=== PATIENT | male | born 1960 | race Two or more races ===

== ENCOUNTER 2024-05-24 20:38 | Emergency (ER) | payer OTHER, MEDICAID, SELFPAY ==
[2024-05-24 20:43] VITALS: PULSE 70; RESP 18; BMI 33.3
[2024-05-24 21:26] VITALS: BP 147/81; PULSE 74; RESP 18; TEMP 37.1; O2SAT 96
--- NOTE | 2024-05-24 21:33 | EDNOTE_ITS ---
ED Male Genitalurinary RME/HPI General Chief complaint: Urogenital-Male Stated complaint: TROUBLE VOIDING X 3HOURS Time Seen by Provider: 05/24/24 21:19 Source: patient Arrival date/time: 05/24/24 20:38 64-year-old male past medical history of BPH and prediabetes presents emergency department complaining of painful urination and acute urinary retention for 3 hours the patient reports was able to urinate spontaneously upon arrival to the ER. Mode of arrival: wheelchair Limitations: physical limitation Related Data Allergies Allergy/AdvReac Type Severity Reaction Status Date / Time No Known Allergies Allergy Verified 11/15/23 12:19 Review of Systems Review of Systems Systems Reviewed: All systems reviewed, normal except as documented Constitutional Constitutional: Reports system reviewed and no additional complaints, except as documented, Denies body ache(s), Denies chills and Denies fever(s) Eyes Eyes: Reports system reviewed and no additional complaints, except as documented and Denies change in vision ENT Ears, Nose, Mouth, and Throat: Reports system reviewed and no additional complaints, except as documented, Denies disequilibrium, Denies dizziness, Denies sore throat and Denies vertigo Cardiovascular Cardiovascular: Reports system reviewed and no additional complaints, except as documented, Denies chest pain and Denies dyspnea Respiratory Respiratory: Reports system reviewed and no additional complaints, except as documented, Denies chest congestion, Denies cough and Denies dyspnea Gastrointestinal Gastrointestinal: Reports system reviewed and no additional complaints, except as documented, Denies abdominal pain, Denies nausea and Denies vomiting Genitourinary Genitourinary: Reports difficulty urinating and Reports urinary urgency Musculoskeletal Musculoskeletal: Reports system reviewed and no additional complaints, except as documented, Denies abnormal gait and Denies arthralgias Integumentary/Breasts Skin/Breast: Reports system reviewed and no additional complaints, except as documented, Denies erythema, Denies rash and Denies wounds Neurologic Neurologic: Reports system reviewed and no additional complaints, except as documented, Denies abnormal gait, Denies disequilibrium, Denies dizziness and Denies vertigo Past Medical History Social History SMOKING STATUS: Never smoker ED Exam General Limitations: Present physical limitation General appearance: Present alert and in no apparent distress Head Head exam: Present atraumatic Eye Eye exam: Present normal appearance, PERRL and EOMI ENT ENT exam: Present normal exam, normal oropharynx and mucous membranes moist Neck Neck exam: Present normal inspection, full ROM and trachea midline Chest Chest inspection: Present normal inspection and symmetric chest wall rise Respiratory Respiratory exam: Present normal lung sounds bilaterally Cardiovascular Cardiovascular exam: Present regular rate, normal rhythm and normal heart sounds Abdominal Exam Abdominal exam: Present soft and normal bowel sounds Extremities Exam Extremities exam: Present normal inspection and full ROM Back Exam Back exam: Present normal inspection and full ROM Neurological Exam Neurological exam: Present alert, oriented X3 and CN II-XII intact Psychiatric Psychiatric exam: Present normal affect and normal mood Skin Skin exam: Present warm, dry, intact and normal color Course Quality Measures none Orders Category Date Time Status Urinalysis, C/S if Indicated Stat Lab 05/24/24 21:47 Completed Vital Signs Vital signs: Vital Signs Temperature 98.7 F 05/24/24 21:26 Pulse Rate 74 05/24/24 21:26 Respiratory Rate 18 05/24/24 21:26 Blood Pressure 147/81 H 05/24/24 21:26 Pulse Oximetry (%) 96 05/24/24 21:26 Oxygen Delivery Method Room Air 05/24/24 21:26 96% RA WNL. Urogenital - Male MDM Narrative MDM Narrative:: 64-year-old male past medical history of BPH and prediabetes presents emergency department complaining of painful urination and acute urinary retention for 3 hours the patient reports was able to urinate spontaneously upon arrival to the ER. Urinalysis was unremarkable for any infection. Patient was able to urinate upon arrival to the ER and reports had a pending visit to urologist in the past but reports never went. Patient stable for discharge instructed to follow-up with primary care provider and request referral to urologist. Instructed to return immediately to emergency department for any acute urinary retention or as needed. Patient data External records reviewed:: [facility] previous records Clinical information provided by:: patient Social determinants that could affect healthcare access:: none Patient has the following chronic illnesses:: see chart How is presenting disease/condition affected by chronic disease/condition?: uneffected by Evaluation data The following diagnostics were reviewed and interpreted by me:: lab results Lab and/or radiology exams considered but not ordered:: ordered Interpretation Summary: interpreted by me Medications / Prescriptions Medications or Prescriptions considered but not ordered:: n/a Medication administrations:: n/a Consultations Consultation(s) initiated? (list below): No Diagnosis Urogenital Male Differential Diagnosis: urinary tract infection, urethritis, genital herpes simplex, prostatitis and acute retention of urine Most likely diagnosis given after review of the tests above:: acute retention of urine Admission Indicated Admission indicated?: not indicated Admission Request Was there a request for admission?: No Disposition Plan Disposition Plan: Discharge Discharge Attestation Discharge Attestation: The patient and all family members were given an opportunity to ask questions and understood the discharge instructions. Discharge instructions specifically effects, indications for sooner follow up or return to the emergency department, and the expected course of current diagnosis. Patient condition: Stable Discharge Plan Plan Patient Disposition: HOME (Self Care) Disposition Comment: Stable Prescriptions/Referrals Referrals: No Primary/Family,Physician [Primary Care Provider] - In 1 week Problem List Clinical Impression: Acute retention of urine Patient/Caregiver Discharge Instructions Discharge Activity: activity as tolerated Education Materials: Benign Prostatic Hyperplasia, ED Urinary Retention, Male Additional Instructions: Drink plenty of fluids stay hydrated. Close follow-up with primary care provider in 24 to 4 hours and request referral to urologist. Return to emergency department for any urinary retention worsening symptoms or as needed. Print Language: Malawian Stand Alone Forms: Lauren Award Info., Patient Portal Info Letter PA/RATNA Supervising Physician HARESH/RATNA Supervising Physician: Dr. Monae
[2024-05-24 22:10] LABS: Collection Type, Urine Clean Catch; RBC,Urine 0 /hpf (0-3); Squamous Epithelial Cell,Urine 0 /hpf (0-5); WBC,Urine 0 /hpf (0-5)
[2024-05-24 22:18] LABS: Bacteria,Urine Rare; Bilirubin,Urine Negative (Negative); Blood,Urine Negative (Negative); Clarity,Urine Clear (Clear/Hazy); Color,Urine Yellow (Lt Yel-Yel); Culture Indicated,Urine Not Indicated; Glucose, Urine Negative (Negative); Ketones,Urine Negative (Negative); Leukocyte Esterase,Urine Negative (Negative); Nitrite,Urine Negative (Negative); Protein,Urine Trace (Neg - Trace); Specific Gravity,Urine 1.028 (1.001-1.035)
[2024-05-24 23:11] VITALS: BP 135/76; PULSE 86; RESP 18; TEMP 36.7; O2SAT 98
== END 2024-05-24 23:20 | disposition home or self-care (01) ==
PROVIDERS: Emergency Provider Emergency Medicine
DX: N40.1 Benign prostatic hyperplasia with lower urinary tract symptoms (principal); R33.8 Other retention of urine
CPT/HCPCS: 81001; 99283

== ENCOUNTER → 2024-06-17 | Outpatient (CLI) | payer OTHER, MEDICAID, SELFPAY ==
[2024-06-17 15:30] LABS: Collection Type, Urine Clean Catch
[2024-06-17 15:46] LABS: Basophils % (Auto) 0 % (0-2.5); Eosinophils # (Auto) 0.3 Thou/mm3 (0.0-0.5); Eosinophils % (Auto) 3 % (0-10); Hematocrit 45.6 % (41.0-53.0); Hemoglobin 15.7 g/dL (13.5-16.0); Immature Granulocytes % (Auto) 1 % (0-0); Immature Granulocytes Auto 0.05 Thou/mm3 (0.00-0.00); Lymphocytes # (Auto) 1.8 Thou/mm3 (1.0-4.8); Lymphocytes % (Auto) 17 % (10-50); Mean Corpuscular HGB Conc 34.4 g/dl (31.0-37.0); Mean Corpuscular Hemoglobin 31.8 pg (25.0-35.0); Mean Corpuscular Volume 93 fL (80-100); Monocytes % (Auto) 10 % (0-12); Neutrophils # (Auto) 7.3 Thou/mm3 (1.8-7.7); Neutrophils % (Auto) 69 % (37-80); Nucleated Red Blood Cell % 0 /100 WBC (0); Platelet Count 308 Thou/mm3 (140-440); RDW Standard Deviation 46.1 fL (35.1-43.9); Red Blood Count 4.93 Miln/mm3 (4.50-5.90); White Blood Count 10.6 Thou/mm3 (3.8-10.6)
[2024-06-17 15:56] LABS: Glucose Estimated Average 103 mg/dL (80-131); Hemoglobin A1C 5.2 % Hgb (4.8-6.0)
[2024-06-17 15:58] LABS: Prostate Specific Antigen 0.85 ng/mL (0-4.00)
[2024-06-17 16:03] LABS: Alanine Aminotransferase 17 U/L (10-49); Albumin/Globulin Ratio 1.6 (1.2-2.2); Alkaline Phosphatase 110 U/L (46-116); Anion Gap 6 (7-16); Aspartate Amino Transferase 18 U/L (0-34); BUN/Creatinine Ratio 21 Ratio (12-20); Bilirubin,Total 0.6 mg/dL (0.3-1.2); Blood Urea Nitrogen 17 mg/dL (9-23); Calcium 9.1 mg/dL (8.3-10.6); Calcium (Corrected) 9.1 mg/dL (8.5-10.1); Carbon Dioxide 27.1 mMol/L (20.0-31.0); Cardiac Risk Estimate 3.7 RATIO (4.0-6.7); Chloride 107 mMol/L (98-107); Cholesterol 149 mg/dL (132-200); Creatinine (Component) 0.8 mg/dL (0.6-1.3); Globulin 2.5 gm/dL (2.3-3.5); Glucose 105 mg/dL (74-106); HDL Cholesterol 40 mg/dL (40-60); LDL Cholesterol,Calculated 79 mg/dL (0-130); Osmolality,Calculated 280 (275-295); Potassium 4.2 mMol/L (3.4-5.1); Sodium 140 mMol/L (136-145); Thyroid Stimulating Hormone 1.45 uIU/mL (0.55-4.78); Total Protein 6.5 gm/dL (5.7-8.2); Triglycerides 150 mg/dL (30-150); eGFR > 60 See Note
[2024-06-17 16:04] LABS: Vitamin D 25 Hydroxy Total 22.8 ng/mL (7.3-40.2)
[2024-06-17 16:07] LABS: Creatinine MALB Rnd Ur 153 mg/dL (30-125); Microalbumin Creat Ratio 92 mg/gCrea (<30); Microalbumin, Random Urine 140 mg/L (0-300)
[2024-06-17 16:08] LABS: Bacteria,Urine 4+; Bilirubin,Urine Negative (Negative); Blood,Urine 2+ (Negative); Clarity,Urine Turbid (Clear/Hazy); Color,Urine Yellow (Lt Yel-Yel); Glucose, Urine Negative (Negative); Ketones,Urine Negative (Negative); Leukocyte Esterase,Urine Positive (Negative); Nitrite,Urine Negative (Negative); Protein,Urine 1+ (Neg - Trace); RBC,Urine 189 /hpf (0-3); Specific Gravity,Urine 1.027 (1.001-1.035); Squamous Epithelial Cell,Urine 3 /hpf (0-5); Urobilinogen,Urine Negative mg/dL (0.0-1.0); WBC,Urine 302 /hpf (0-5)
[2024-06-17 16:12] LABS: Culture Indicated,Urine Yes
== END | disposition home or self-care (01) ==
LOC: COPL 14:22
PROVIDERS: PCP Family Medicine; Referring Provider Family Medicine; Visit Provider Family Medicine
DX: Z00.00 Encounter for general adult medical examination without abnormal findings (principal); Z13.0 Encounter for screening for diseases of the blood and blood-forming organs and certain disorders involving the immune mechanism; Z13.29 Encounter for screening for other suspected endocrine disorder; Z13.21 Encounter for screening for nutritional disorder; Z13.220 Encounter for screening for lipoid disorders
CPT/HCPCS: 36415; 80053; 80061; 81001; 82043; 82306; 82570; 83036; 84153; 84443; 85025; 87077; 87086; 87186

== ENCOUNTER 2024-09-21 17:53 | Emergency (ER) | payer OTHER, MEDICAID, SELFPAY ==
[2024-09-21 17:54] VITALS: BMI 33.3
[2024-09-21 18:21] VITALS: BP 149/100; PULSE 69; RESP 18; TEMP 37.2; O2SAT 96
--- NOTE | 2024-09-21 18:27 | PD.EDUPEX ---
Upper Extremity Injury RME/HPI General Chief Complaint: Extremity Injury, Upper Stated Complaint: L SHOULDER INFLAMMATION S/P ARTHRITIS X1DAY Time Seen by Provider: 09/21/24 18:14 Source: patient, RN notes reviewed and old records reviewed Arrival date/time: 09/21/24 17:53 Mode of arrival: ambulatory Limitations: no limitations RME / HPI RME / HPI narrative: 64yom presents to ED for left shoulder pain since yesterday. Denies injury/trauma or fall. Patient reports hx of arthritis. Pain worsens with palpation and ROM. Ibuprofen taken yesterday with some relief, no medications or treatments today. No fever, shortness of breath, chest pain, UE weakness or numbness/tingling reported. Related Data Previous Rx's ?Medication ?Instructions ?Recorded ibuprofen 600 mg tablet 600 mg PO Q6H PRN pain #20 tabs 09/21/24 lidocaine 5 % topical patch 1 patch topical QDAY #15 ea 09/21/24 methocarbamol 500 mg tablet 1,000 mg (2 x 500 mg) PO Q8H PRN 09/21/24 pain #30 tabs Allergies Allergy/AdvReac Type Severity Reaction Status Date / Time No Known Allergies Allergy Verified 09/21/24 17:57 Review of Systems Review of Systems Systems Reviewed: All systems reviewed, normal except as documented Constitutional Constitutional: Denies chills and Denies fever(s) ENT Ears, Nose, Mouth, and Throat: Denies neck pain Cardiovascular Cardiovascular: Denies chest pain and Denies dyspnea Respiratory Respiratory: Denies dyspnea Musculoskeletal Musculoskeletal: Reports arthralgias, Denies deformity, Denies joint swelling, Reports limited range of motion, Denies neck pain, Denies numbness and Denies tingling Neurologic Neurologic: Denies localized weakness, Denies numbness and Denies tingling Past Medical History Past Medical History CARDIAC: Positive Hypercholesterolemia and Hypertension Surgical History OTHER SURGICAL HX: Inguinal hernia repair Social History SMOKING STATUS: Never smoker SUBSTANCE USE: does not use ALCOHOL: Never Past Medical History Comments PMH COMMENT: prediabetes ED Exam General Limitations: Present no limitations General appearance: Present alert and in no apparent distress Head Head exam: Present atraumatic and normocephalic Eye Eye exam: Present normal appearance, PERRL and EOMI ENT ENT exam: Present normal exam and mucous membranes moist Neck Neck exam: Present normal inspection and full ROM; Absent tenderness Chest Chest inspection: Present normal inspection and symmetric chest wall rise; Absent tenderness Respiratory Respiratory exam: Present normal lung sounds bilaterally; Absent respiratory distress Cardiovascular Cardiovascular exam: Present regular rate and normal rhythm Extremities Exam Extremities exam: Present tenderness (Left anterior shoulder, no swelling. Limited ROM 2/2 pain. Able to wiggle all fingers. Radial pulse and sensation intact.) Back Exam Back exam: Present normal inspection and full ROM; Absent tenderness Neurological Exam Neurological exam: Present alert, oriented X3 and normal gait; Absent motor sensory deficit Psychiatric Psychiatric exam: Present normal affect and normal mood Skin Skin exam: Present warm, dry, intact and normal color Course Quality Measures none Orders Category Date Time Status XR shoulder LT min 2V Stat Exams 09/21/24 18:28 Completed Acetaminophen Tab [Tylenol ES Tab] Med 09/21/24 18:28 Discontinued 1,000 mg PO X1 ONE CYCLObenzaPRINE [Flexeril] Med 09/21/24 18:28 Discontinued 5 mg PO X1 ONE Ketorolac Inj [Toradol Inj] Med 09/21/24 18:28 Discontinued 30 mg IM X1 ONE Lidocaine 5% Patch Med 09/21/24 18:28 Discontinued 1 patch TOP X1 ONE Vital Signs Vital signs: Vital Signs Temperature 99.0 F 09/21/24 18:21 Pulse Rate 69 09/21/24 18:21 Respiratory Rate 18 09/21/24 18:21 Blood Pressure 149/100 H 09/21/24 18:21 Pulse Oximetry (%) 96 09/21/24 18:21 Oxygen Delivery Method Room Air 09/21/24 18:21 Extremity Injury MDM Narrative MDM Narrative:: 64yom presents to ED for left shoulder pain since yesterday. Denies injury/trauma or fall. Patient reports hx of arthritis. Pain worsens with palpation and ROM. Ibuprofen taken yesterday with some relief, no medications or treatments today. No fever, shortness of breath, chest pain, UE weakness or numbness/tingling reported. Patient reassessed. Pain improved after meds administered. He is neurovascularly intact. Encouraged RICE therapy, Motrin/Tylenol prn pain. Ortho referral given for follow-up and further management. Stable for discharge, RTED precautions given. Patient data External records reviewed:: [facility] previous records (05/24/2024 ED visit for urinary retention) Clinical information provided by:: patient Social determinants that could affect healthcare access:: other (specify) (Poor access to healthcare, unemployed) Patient has the following chronic illnesses:: Hypertension How is presenting disease/condition affected by chronic disease/condition?: uneffected by Evaluation data The following diagnostics were reviewed and interpreted by me:: radiology exam(s) Lab and/or radiology exams considered but not ordered:: None Interpretation Summary: Shoulder x-rays: No fracture or dislocation per my read Medications / Prescriptions Medications or Prescriptions considered but not ordered:: None Medication administrations:: Medication Administration History Discontinued Medications Acetaminophen (Acetaminophen 500 Mg Tablet) 1,000 mg PO X1 ONE Stop: 09/21/24 18:29 Last Admin: 09/21/24 19:24 Dose: 1,000 mg Documented By: GAVIN Cyclobenzaprine HCl (Cyclobenzaprine 5 Mg Tablet) 5 mg PO X1 ONE Stop: 09/21/24 18:29 Last Admin: 09/21/24 19:23 Dose: 5 mg Documented By: GAVIN Ketorolac Tromethamine (Ketorolac Inj 60 Mg/2 Ml Vial) 30 mg IM X1 ONE Stop: 09/21/24 18:29 Last Admin: 09/21/24 19:24 Dose: 30 mg Documented By: GAVIN Lidocaine (Lidocaine 5% 1 Patch) 1 patch TOP X1 ONE Stop: 09/21/24 18:29 Last Admin: 09/21/24 19:24 Dose: 1 patch Documented By: GAVIN Above medications administered in ED Consultations Consultation(s) initiated? (list below): No Diagnosis Upper Extremity Injury Differential Diagnosis: other (Sprain, strain, contusion, MSK pain, arthritis, septic joint, gout) Most likely diagnosis given after review of the tests above:: Shoulder pain, OA Admission Indicated Admission indicated?: not indicated Admission Request Was there a request for admission?: No Disposition Plan Disposition Plan: Discharge Discharge Attestation Discharge Attestation: The patient and all family members were given an opportunity to ask questions and understood the discharge instructions. Discharge instructions specifically effects, indications for sooner follow up or return to the emergency department, and the expected course of current diagnosis. Patient condition: Stable Discharge Plan Plan Patient Disposition: HOME (Self Care) Patient condition on transfer: Stable Prescriptions/Referrals Prescriptions/Med Rec: New ibuprofen 600 mg tablet 600 mg PO Q6H PRN (Reason: pain) Qty: 20 0RF methocarbamol 500 mg tablet 1,000 mg PO Q8H PRN (Reason: pain) Qty: 30 0RF lidocaine 5 % adhesive patch,medicated 1 patch topical QDAY Qty: 15 0RF Rx Instructions: leave on most painful area for up to 12 hrs Referrals: Bin Land MD [Physician] - (Call to schedule an appointment for a visit) Problem List Clinical Impression: Left shoulder pain, Osteoarthritis Patient/Caregiver Discharge Instructions Education Materials: ED Arthralgia, ED Osteoarthritis Print Language: Turkish Stand Alone Forms: Lauren Award Info., Patient Portal Info Letter PA/AUTOMOBILE RENTAL CLERK Supervising Physician PA/AUTOMOBILE RENTAL CLERK Supervising Physician: Steven
--- NOTE | 2024-09-21 18:28 | XR_ITS ---
Examination: Shoulder,left, 3 views Technique: Shoulder AP internal rotation, AP external rotation, Y view shoulder, 3 views Exam date and time :01/22/2025 1849 hours INDICATIONS: Left shoulder pain today. FINDINGS: Advanced osteoarthritis glenohumeral joint No fracture or shoulder dislocation IMPRESSION: Advanced osteoarthritis glenohumeral joint
[2024-09-21] MEDS: CYCLObenzaPRINE 5 MG TABLET PO (19:23)
[2024-09-21] MEDS: ACETAMINOPHEN 500 MG TABLET 1000 MG PO (19:24)
[2024-09-21] MEDS: LIDOCAINE 5% 1 PATCH TOP (19:24)
[2024-09-21] MEDS: KETOROLAC INJ 60 MG/2 ML VIAL 30 MG IM (19:24)
== END 2024-09-21 20:55 | disposition home or self-care (01) ==
PROVIDERS: Emergency Provider Emergency Medicine
DX: M19.012 Primary osteoarthritis, left shoulder (principal)
CPT/HCPCS: 73030; 96372; 99283; J1885; J3490; A9270

== ENCOUNTER 2024-10-24 13:46 | Emergency (ER) | payer OTHER, MEDICAID, SELFPAY ==
[2024-10-24 14:28] VITALS: BP 127/76; PULSE 71; RESP 16; TEMP 36.8; O2SAT 96; BMI 34.0
--- NOTE | 2024-10-24 14:34 | XR_ITS ---
Examination: Abdomen sonogram, Limited Date and time of exam: October 24, 2024 1542 hours INDICATION: Right-sided groin inguinal pain 3 days, history right inguinal hernia repair Technique: Real-time gomez scale transabdominal sonographic images of the upper abdomen obtained. Findings: Bowel containing right inguinal hernia 4.4 x 1.0 x 1.4 cm IMPRESSION: Bowel containing right inguinal hernia 4.4 x 1.0 x 1.4 cm
--- NOTE | 2024-10-24 14:37 | EDNOTE_ITS ---
ED Abdominal Pain RME/HPI General Chief Complaint: Abdominal Pain Stated complaint: Hernia, right lower abdominal quadrant Time seen by provider: 10/24/24 14:07 Arrival date/time: 10/24/24 13:46 RME / HPI RME / HPI narrative: 64-year-old male patient came in for evaluation regarding right inguinal pain. Patient believes that his hernia is coming, he had a hernia repair done in [place] 3 years ago. Patient denies any fever denies any abdominal pain denies any vomiting denies any discharge denies any other complaints no medication was taken prior to arrival. Related Data Previous Rx's ?Medication ?Instructions ?Recorded ibuprofen 600 mg tablet 600 mg PO Q6H PRN pain #20 t abs 09/21/24 lidocaine 5 % topical patch 1 patch topical QDAY #15 e a 09/21/24 methocarbamol 500 mg tablet 1,000 mg (2 x 500 mg) PO Q 8H PRN 09/21/24 pain #30 tabs ibuprofen 800 mg tablet 800 mg PO Q8H PRN pain #30 t abs 10/24/24 Allergies Allergy/AdvReac Type Severity Reaction Status Date / Time No Known Allergies Allergy Verified 10/24/24 13:50 Review of Systems Review of Systems Narrative Review of Systems: Review of system reviewed and within normal limits except mentioned in HPI ED Exam Narrative Physical exam: VITAL SIGNS: Reviewed. GENERAL APPEARANCE: Alert and interactive, follows commands, no acute distress, HEAD AND FACE: Non-traumatic. ENT: PERRL, pink conjunctivitis, eyelid no trauma, Mucous membrane moist. NECK: Supple, nontender, no nuchal rigidity. CHEST: No tenderness, no crepitus, no paradoxical movement, no retractions. LUNGS: Clear, well ventilated, symmetric, no rales, no wheezing, no ronchi, no stridor, good breath sounds bilaterally. HEART: Regular rate, regular rhythm, no murmur, no gallops. ABDOMEN: Soft, positive bowel sounds, nondistended, no guarding, nontender, no rebound, no masses, right inguinal tenderness, I did not notice any palpable mass, no redness RECTAL: Deferred. GENITAL: Deferred. NEUROLOGICAL: Gross motor function intact sensory function intact, Appropriate for age. MUSCULOSKELETAL: low back nontender, full range of motion. EXTREMITIES: Nontender, full range of motion. SKIN: Color pink, dry, no rash, no lacerations, no abrasions, no contusions. LYMPHATICS: Deferred. Course Quality Measures none Orders Category Date Time Status CT Screening NOW Care 10/24/24 17:[address] abdomen pelvis w con Stat Exams 10/24/24 17:49 Completed US abdomen limited Stat Exams 10/24/24 14:34 Completed CBC [CBC] Stat Lab 10/24/24 18:05 Completed CMP [Comprehensive Metabolic Panel] Stat Lab 10/24/24 18:05 Completed Lipase Stat Lab 10/24/24 18:05 Completed PTT [Partial Thromboplastin Time] Stat Lab 10/24/24 18:05 Completed UA, C/S IF [Urinalysis, C/S if Indicated] Stat Lab 10/24/24 15:20 Completed Ketorolac Inj [Toradol Inj] Med 10/24/24 14:34 Discontinued 30 mg IM X1 ONE Vital Signs Vital signs: Vital Signs Temperature 98.3 F 10/24/24 14:28 Pulse Rate 71 10/24/24 14:28 Respiratory Rate 16 10/24/24 14:28 Blood Pressure 127/76 10/24/24 14:28 Pulse Oximetry (%) 96 10/24/24 14:28 Oxygen Delivery Method Room Air 10/24/24 14:28 Abdominal Pain [facility] Narrative [facility] Narrative:: 64-year-old male patient came in for evaluation regarding right inguinal pain. Patient believes that his hernia is coming, he had a hernia repair done in [place] 3 years ago. Patient denies any fever denies any abdominal pain denies any vomiting denies any discharge denies any other complaints no medication was taken prior to arrival. CBC came back unremarkable. CMP unremarkable. Urinalysis no UTI. CT scan of the abdomen and pelvis showed Fat-containing left inguinal hernia No right inguinal hernia No bowel obstruction Patient data External records reviewed:: None Clinical information provided by:: patient Social determinants that could affect healthcare access:: none Patient has the following chronic illnesses:: None How is presenting disease/condition affected by chronic disease/condition?: no chronic disease Evaluation data The following diagnostics were reviewed and interpreted by me:: radiology exam(s) Lab and/or radiology exams considered but not ordered:: None Interpretation Summary: See results in MDM Medications / Prescriptions Medications or Prescriptions considered but not ordered:: None Medication administrations:: Medication Administration History Discontinued Medications Ketorolac Tromethamine (Ketorolac Inj 60 Mg/2 Ml Vial) 30 mg IM X1 ONE Stop: 10/24/24 14:35 Last Admin: 10/24/24 15:13 Dose: 30 mg Documented By: ARTI Toradol IM with significant improvement of pain Consultations Consultation(s) initiated? (list below): No Diagnosis Differential diagnosis abdominal pain: abdominal pain and other (Inguinal hernia, inguinal pain) Most likely diagnosis given after review of the tests above:: Right inguinal pain, left Inguinal hernia Admission Indicated Admission indicated?: not indicated Admission Request Was there a request for admission?: No Disposition Plan Disposition Plan: Discharge Discharge Attestation Discharge Attestation: The patient was given an opportunity to ask questions and understood the coral bennett instructions. Discharge instructions specifically effects, indications for sooner follow up or return to the emergency department, and the expected course of current diagnosis. Patient condition: Stable Discharge Plan Plan Patient Disposition: HOME (Self Care) Discharge Disposition comment: Stable Prescriptions/Referrals Prescriptions/Med Rec: New ibuprofen 800 mg tablet 800 mg PO Q8H PRN (Reason: pain) Qty: 30 0RF No Action ibuprofen 600 mg tablet 600 mg PO Q6H PRN (Reason: pain) Qty: 20 0RF methocarbamol 500 mg tablet 1,000 mg PO Q8H PRN (Reason: pain) Qty: 30 0RF lidocaine 5 % adhesive patch,medicated 1 patch topical QDAY Qty: 15 0RF Rx Instructions: leave on most painful area for up to 12 hrs Referrals: Jose R (PCP),MD Efrem [Primary Care Provider] - In 1 week Problem List Clinical Impression: Right inguinal pain, Left inguinal hernia Patient/Caregiver Discharge Instructions Discharge Activity: activity as tolerated Education Materials: ED Hernia (Adult) Additional Instructions: Thank you for the opportunity for serving you today. You are stable for discharged . You are advised to: Follow-up with your PCP in 1 to 2 days Return to ED for worsening of symptoms Increase oral fluids Take medication as prescribed Print Language: Slovak Stand Alone Forms: Lauren Award Info., Patient Portal Info Letter PA/DEVELOPMENT ADVISOR Supervising Physician PA/DEVELOPMENT ADVISOR Supervising Physician: MD Irina
[2024-10-24] MEDS: KETOROLAC INJ 60 MG/2 ML VIAL 30 MG IM (15:13)
[2024-10-24 15:29] LABS: Collection Type, Urine Clean Catch; RBC,Urine 0 /hpf (0-3); Squamous Epithelial Cell,Urine 0 /hpf (0-5)
[2024-10-24 15:48] LABS: Amorphous Crystals,Urine Present (Absent); Bacteria,Urine Rare; Bilirubin,Urine Negative (Negative); Blood,Urine Negative (Negative); Clarity,Urine Clear (Clear/Hazy); Color,Urine Yellow (Lt Yel-Yel); Culture Indicated,Urine Not Indicated; Glucose, Urine Negative (Negative); Hyaline Casts,Urine < 1 /hpf (0-1); Ketones,Urine Negative (Negative); Leukocyte Esterase,Urine Negative (Negative); Nitrite,Urine Negative (Negative); Protein,Urine Negative (Neg - Trace); Specific Gravity,Urine 1.024 (1.001-1.035); Urobilinogen,Urine Negative mg/dL (0.0-1.0); WBC,Urine 1 /hpf (0-5)
--- NOTE | 2024-10-24 17:49 | XR_ITS ---
Examination: CT abdomen with intravenous contrast CT pelvis with intravenous contrast 2-D coronal reconstructions 2-D sagittal reconstructions Date and time of exam:October 24, 2024, 1926 hours INDICATIONS: Right-sided lower abdominal pain beginning 3 days ago, clinical diagnosis inguinal hernia. CTDI: vol (mGy) 14.6 DLP: (mGycm) 837 Technique: Multiple axial sections of the abdomen and pelvis have been obtained. 64 slice high-resolution scanner used. 3 mm axial sections have been obtained, post intravenous injection 60 cc Isovue 370 2-D sagittal, coronal reconstructions obtained. Low dose protocols were performed. One or more of the following dose reduction techniques were used; automated exposure control, adjustment of the mA and/or KV according to patient size, use of iterative reconstruction technique. Findings: No focal liver or splenic lesion No gallstones No pancreatic or adrenal mass No renal or ureteral calculi, no hydronephrosis Aorta normal size No pericecal inflammatory changes No bowel obstruction Urinary bladder intact Fat-containing left inguinal hernia No right inguinal hernia. The osseous structures are intact IMPRESSION: Fat-containing left inguinal hernia No right inguinal hernia No bowel obstruction
[2024-10-24 18:35] LABS: Basophils # (Auto) 0.1 Thou/mm3 (0.0-0.2); Basophils % (Auto) 1 % (0-2.5); Eosinophils # (Auto) 0.3 Thou/mm3 (0.0-0.5); Eosinophils % (Auto) 3 % (0-10); Hematocrit 48.3 % (41.0-53.0); Immature Granulocytes % (Auto) 0 % (0-0); Immature Granulocytes Auto 0.04 Thou/mm3 (0.00-0.00); Lymphocytes % (Auto) 30 % (10-50); Mean Corpuscular HGB Conc 35.2 g/dl (31.0-37.0); Mean Corpuscular Hemoglobin 32.8 pg (25.0-35.0); Mean Corpuscular Volume 93 fL (80-100); Monocytes # (Auto) 0.8 Thou/mm3 (0.0-0.8); Monocytes % (Auto) 8 % (0-12); Neutrophils % (Auto) 59 % (37-80); Nucleated Red Blood Cell % 0 /100 WBC (0); Platelet Count 309 Thou/mm3 (140-440); RDW Standard Deviation 46.1 fL (35.1-43.9); Red Blood Count 5.19 Miln/mm3 (4.50-5.90); White Blood Count 10.2 Thou/mm3 (3.8-10.6)
[2024-10-24 18:42] LABS: Partial Thromboplastin Time 27.2 Seconds (22.0-36.0)
[2024-10-24 18:46] LABS: Alanine Aminotransferase 24 U/L (10-49); Albumin, Serum 4.3 gm/dL (3.4-4.8); Albumin/Globulin Ratio 1.7 (1.2-2.2); Alkaline Phosphatase 102 U/L (46-116); Anion Gap 7 (7-16); Aspartate Amino Transferase 23 U/L (0-34); BUN/Creatinine Ratio 15 Ratio (12-20); Bilirubin,Total 0.6 mg/dL (0.3-1.2); Blood Urea Nitrogen 15 mg/dL (9-23); Calcium 8.9 mg/dL (8.3-10.6); Calcium (Corrected) 8.9 mg/dL (8.5-10.1); Carbon Dioxide 28.5 mMol/L (20.0-31.0); Chloride 104 mMol/L (98-107); Estimated Creatinine Clearance 102.8 mL/min (>60); Globulin 2.6 gm/dL (2.3-3.5); Glucose 89 mg/dL (74-106); Lipase 31 U/L (12-53); Osmolality,Calculated 277 (275-295); Potassium 4.4 mMol/L (3.4-5.1); Sodium 139 mMol/L (136-145); Total Protein 6.9 gm/dL (5.7-8.2); eGFR > 60 See Note
[2024-10-24 18:47] VITALS: BP 143/89; PULSE 56; RESP 19; TEMP 37.1; O2SAT 95
[2024-10-24 21:48] VITALS: BP 150/82; PULSE 66; RESP 17; O2SAT 98
== END 2024-10-24 21:49 | disposition home or self-care (01) ==
PROVIDERS: Nurse Practitioner Family; Emergency Provider Emergency Medicine; PCP Family Medicine
DX: K40.90 Unilateral inguinal hernia, without obstruction or gangrene, not specified as recurrent (principal)
CPT/HCPCS: 36415; 74177; 76705; 80053; 81001; 83690; 85025; 85730; 96372; 99285; A4649; J1885; Q9967

== ENCOUNTER → 2024-11-19 | Outpatient (BNVA) | payer OTHER, MEDICAID, SELFPAY | END | disposition home or self-care (01) | PROVIDERS: PCP Family Medicine; Referring Provider Family Medicine; Visit Provider Urology | DX: N40.1 Benign prostatic hyperplasia with lower urinary tract symptoms (principal); N13.8 Other obstructive and reflux uropathy; I10 Essential (primary) hypertension; R73.03 Prediabetes; E66.9 Obesity, unspecified; Z68.32 Body mass index [BMI] 32.0-32.9, adult; Z71.3 Dietary counseling and surveillance; E78.00 Pure hypercholesterolemia, unspecified | CPT/HCPCS: 81003; 99213; G0463 ==

== ENCOUNTER → 2025-01-07 | Outpatient (BNVA) | payer OTHER, MEDICAID, SELFPAY | END | disposition home or self-care (01) | PROVIDERS: PCP Family Medicine; Referring Provider Family Medicine; Visit Provider Urology | DX: N40.1 Benign prostatic hyperplasia with lower urinary tract symptoms (principal); R39.12 Poor urinary stream; I10 Essential (primary) hypertension; E78.00 Pure hypercholesterolemia, unspecified; E10.9 Type 1 diabetes mellitus without complications | CPT/HCPCS: 51741; 51798 ==

== ENCOUNTER → 2025-01-25 | Outpatient (BNVA) | payer OTHER, MEDICAID, SELFPAY | END | disposition home or self-care (01) | PROVIDERS: PCP Family Medicine; Referring Provider Family Medicine; Visit Provider Urology | DX: N40.1 Benign prostatic hyperplasia with lower urinary tract symptoms (principal); N13.8 Other obstructive and reflux uropathy; E10.9 Type 1 diabetes mellitus without complications; I10 Essential (primary) hypertension; E78.00 Pure hypercholesterolemia, unspecified | CPT/HCPCS: 76872 ==

== ENCOUNTER → 2025-01-28 | Outpatient (BNVA) | payer OTHER, MEDICAID, SELFPAY | END | disposition home or self-care (01) | PROVIDERS: PCP Family Medicine; Referring Provider Family Medicine; Visit Provider Urology | DX: N40.1 Benign prostatic hyperplasia with lower urinary tract symptoms (principal); R39.12 Poor urinary stream; I10 Essential (primary) hypertension | CPT/HCPCS: 51741; 51798 ==